=== PATIENT | female | born 1950 | race Caucasian/White ===

== ENCOUNTER 2023-09-18 20:36 | Inpatient (IN) | payer MEDICARE, OTHER ==
[~2023-09-18] VITALS: Ht 170.2 cm; Wt 58.5 kg
[2023-09-18 20:50] VITALS: BP 124/81; TEMP 98.2; O2SAT 95
[2023-09-18] MEDS ORDERED: ACETAMINOPHEN 325 MG TABLET PO PRN (21:00)
[2023-09-18] MEDS ORDERED: MAG HYDROX/AL HYDROX/SIMETH 30 ML UDC PO PRN (21:00)
[2023-09-18] MEDS ORDERED: LORAZEPAM 0.5 MG TABLET PO PRN (21:00)
[2023-09-18] MEDS ORDERED: MAGNESIUM HYDROXIDE 30 ML UDC PO PRN (21:00)
[2023-09-18] MEDS ORDERED: TEMAZEPAM 7.5 MG CAPSULE PO PRN (21:00)
[2023-09-18] MEDS ORDERED: BLOOD SUGAR DIAGNOSTIC 1 EACH STRIP IN ONE (21:00)
[2023-09-19 07:49] LABS: ALBUMIN 3.2 g/dL (3.4-5.0); BILIRUBIN,TOTAL 0.4 mg/dL (0.2-1.0); CALCIUM, SERUM 8.9 mg/dL (8.5-10.1); POTASSIUM 3.2 mmol/L (3.5-5.1); TOTAL PROTEIN, SERUM 6.3 g/dL (6.4-8.2)
[2023-09-19 07:50] LABS: CHOLESTEROL 173 mg/dL (<200); HDL CHOLESTEROL 57 mg/dL (40-60); LDL 102 mg/dL (0-99); TRIGLYCERIDES 78 mg/dL (30-150)
[2023-09-19 08:00] VITALS: BP 156/78; TEMP 98; O2SAT 98
[2023-09-19] MEDS: risperiDONE 0.25 MG TABLET PO SCH ×2 (12:54→16:19)
[2023-09-19] MEDS ORDERED: POTASSIUM CHLORIDE 20 MEQ TAB.PRT.SR PO ONE (14:30)
[2023-09-19 16:00] VITALS: BP 126/77; TEMP 98; O2SAT 100
[2023-09-19] MEDS: DULOXETINE HCL 30 MG CAPSULE.DR PO SCH (16:19)
[2023-09-19] MEDS ORDERED: ENSURE ENLIVE CHOC 237 ML CAN PO SCH (17:00)
[2023-09-19] MEDS: ENSURE ENLIVE 237 ML LIQUID (VANILLA) PO SCH (17:19)
[2023-09-19 20:00] VITALS: BP 125/78; TEMP 98.1; O2SAT 97
[2023-09-20 08:00] VITALS: BP 113/67; TEMP 97.6; O2SAT 98
[2023-09-20] MEDS: ENSURE ENLIVE 237 ML LIQUID (VANILLA) PO SCH ×2 (08:17→17:07)
[2023-09-20] MEDS: risperiDONE 0.25 MG TABLET PO SCH ×2 (08:18→16:17)
[2023-09-20 16:00] VITALS: BP 116/67; TEMP 97.6; O2SAT 98
[2023-09-20] MEDS: DULOXETINE HCL 30 MG CAPSULE.DR PO SCH (16:17)
[2023-09-20 20:00] VITALS: BP 102/65; TEMP 98.1; O2SAT 97
[2023-09-21 07:36] LABS: BASOPHILS % (AUTO) 0.2 % (0.0-2.0); EOSINOPHILS # (AUTO) 0.3 K/uL (0.0-0.7); EOSINOPHILS % (AUTO) 5.2 % (0.0-6.0); HEMATOCRIT 34 % (33-45); LYMPHOCYTES # (AUTO) 2.2 K/uL (0.8-4.8); LYMPHOCYTES % (AUTO) 39.3 % (20.0-44.0); MEAN CORPUSCULAR HEMOGLOBIN 29 PG (26.0-33.0); MEAN CORPUSCULAR HGB CONC 32 g/dl (31.0-36.0); MEAN CORPUSCULAR VOLUME 91 fL (82-100); MONOCYTES # (AUTO) 0.4 K/uL (0.1-1.30); MONOCYTES % (AUTO) 7.9 % (2.0-12.0); NEUTROPHILS # (AUTO) 2.7 K/uL (1.8-8.9); NEUTROPHILS % (AUTO) 47.4 % (43.0-81.0); PLATELET COUNT (AUTO) 211 K/uL (150-450); RED BLOOD CELL COUNT(AUTO) 3.76 MIL/uL (4.0-5.2); RED CELL DISTRIBUTION WIDTH 14.4 % (11.5-15.0); WHITE BLOOD COUNT (AUTO) 5.6 K/uL (4.3-11.0)
[2023-09-21 08:00] VITALS: BP 112/68; TEMP 97.7; O2SAT 99
[2023-09-21] MEDS: risperiDONE 0.25 MG TABLET PO SCH ×2 (08:07→16:07)
[2023-09-21] MEDS: ENSURE ENLIVE 237 ML LIQUID (VANILLA) PO SCH ×2 (08:07→18:01)
[2023-09-21 16:00] VITALS: BP 100/65; TEMP 97.5; O2SAT 97
[2023-09-21] MEDS: DULOXETINE HCL 30 MG CAPSULE.DR PO SCH (16:07)
[2023-09-21 20:00] VITALS: BP 109/53; TEMP 97.7; O2SAT 97
[2023-09-22 08:00] VITALS: BP 102/86; TEMP 97.8; O2SAT 98
[2023-09-22] MEDS: ENSURE ENLIVE 237 ML LIQUID (VANILLA) PO SCH ×2 (08:42→17:03)
[2023-09-22] MEDS: risperiDONE 0.25 MG TABLET PO SCH ×2 (08:42→17:03)
[2023-09-22 16:00] VITALS: BP 110/85; TEMP 97.9; O2SAT 94
[2023-09-22] MEDS: DULOXETINE HCL 30 MG CAPSULE.DR PO SCH (17:03)
[2023-09-22 20:23] VITALS: BP 103/63; TEMP 98.2; O2SAT 98
[2023-09-23 08:00] VITALS: BP 129/67; TEMP 98.6; O2SAT 98
[2023-09-23] MEDS: ENSURE ENLIVE 237 ML LIQUID (VANILLA) PO SCH ×2 (08:00→16:02)
[2023-09-23] MEDS: PANTOPRAZOLE 40 MG TABLET.DR PO SCH (08:00)
[2023-09-23] MEDS: risperiDONE 0.25 MG TABLET PO SCH ×2 (08:29→16:02)
[2023-09-23] MEDS: DOCUSATE SODIUM 100 MG CAPSULE PO SCH (08:30)
[2023-09-23 16:00] VITALS: BP 131/70; TEMP 97.7; O2SAT 99
[2023-09-23] MEDS: DULOXETINE HCL 30 MG CAPSULE.DR PO SCH (16:03)
[2023-09-23 20:00] VITALS: BP 118/65; TEMP 98.6; O2SAT 95
[2023-09-24 08:00] VITALS: BP 101/67; TEMP 97.6; O2SAT 98
[2023-09-24] MEDS: ENSURE ENLIVE 237 ML LIQUID (VANILLA) PO SCH ×2 (08:49→17:04)
[2023-09-24] MEDS: DOCUSATE SODIUM 100 MG CAPSULE PO SCH (08:50)
[2023-09-24] MEDS: risperiDONE 0.25 MG TABLET PO SCH ×3 (08:50→16:33)
[2023-09-24] MEDS: PANTOPRAZOLE 40 MG TABLET.DR PO SCH (08:50)
[2023-09-24] MEDS: DULOXETINE HCL 30 MG CAPSULE.DR PO SCH ×2 (13:41→16:33)
[2023-09-24 16:00] VITALS: BP 105/73; TEMP 97.9; O2SAT 97
[2023-09-24 19:59] VITALS: BP 115/75; TEMP 98.8; O2SAT 96
[2023-09-25] MEDS: PANTOPRAZOLE 40 MG TABLET.DR PO SCH (07:54)
[2023-09-25] MEDS: ENSURE ENLIVE 237 ML LIQUID (VANILLA) PO SCH ×2 (07:55→16:28)
[2023-09-25 08:00] VITALS: BP 116/76; TEMP 98.1; O2SAT 98
[2023-09-25] MEDS: DOCUSATE SODIUM 100 MG CAPSULE PO SCH (08:08)
[2023-09-25] MEDS: risperiDONE 0.25 MG TABLET PO SCH ×3 (08:08→16:28)
[2023-09-25] MEDS: DULOXETINE HCL 30 MG CAPSULE.DR PO SCH ×2 (12:29→16:27)
[2023-09-25 16:37] VITALS: BP 111/80; TEMP 98.1; O2SAT 97
[2023-09-25 19:26] VITALS: BP 99/61; TEMP 98.3; O2SAT 95
[2023-09-26] MEDS: PANTOPRAZOLE 40 MG TABLET.DR PO SCH (07:37)
[2023-09-26] MEDS: ENSURE ENLIVE 237 ML LIQUID (VANILLA) PO SCH ×2 (07:43→16:08)
[2023-09-26 08:00] VITALS: BP 120/83; TEMP 98.2; O2SAT 97
[2023-09-26] MEDS: DOCUSATE SODIUM 100 MG CAPSULE PO SCH (08:29)
[2023-09-26] MEDS: risperiDONE 0.25 MG TABLET PO SCH ×3 (08:29→16:08)
[2023-09-26] MEDS: DULOXETINE HCL 30 MG CAPSULE.DR PO SCH ×2 (12:38→16:08)
[2023-09-26 16:00] VITALS: BP 109/84; TEMP 98.1; O2SAT 98
[2023-09-27 08:00] VITALS: BP 131/87; TEMP 97.9; O2SAT 98
[2023-09-27 08:02] LABS: BASOPHILS % (AUTO) 0.5 % (0.0-2.0); EOSINOPHILS # (AUTO) 0.2 K/uL (0.0-0.7); EOSINOPHILS % (AUTO) 4.8 % (0.0-6.0); HEMATOCRIT 35 % (33-45); HEMOGLOBIN 11.6 g/dL (11.5-14.8); LYMPHOCYTES # (AUTO) 1.7 K/uL (0.8-4.8); LYMPHOCYTES % (AUTO) 33.2 % (20.0-44.0); MEAN CORPUSCULAR HEMOGLOBIN 30 PG (26.0-33.0); MEAN CORPUSCULAR HGB CONC 33 g/dl (31.0-36.0); MEAN CORPUSCULAR VOLUME 91 fL (82-100); MONOCYTES # (AUTO) 0.3 K/uL (0.1-1.30); MONOCYTES % (AUTO) 5.4 % (2.0-12.0); NEUTROPHILS # (AUTO) 2.9 K/uL (1.8-8.9); NEUTROPHILS % (AUTO) 56.1 % (43.0-81.0); PLATELET COUNT (AUTO) 217 K/uL (150-450); RED BLOOD CELL COUNT(AUTO) 3.87 MIL/uL (4.0-5.2); RED CELL DISTRIBUTION WIDTH 14.4 % (11.5-15.0); WHITE BLOOD COUNT (AUTO) 5.2 K/uL (4.3-11.0)
[2023-09-27] MEDS: risperiDONE 0.25 MG TABLET PO SCH ×3 (08:08→16:33)
[2023-09-27] MEDS: ENSURE ENLIVE 237 ML LIQUID (VANILLA) PO SCH ×2 (08:08→17:41)
[2023-09-27] MEDS: PANTOPRAZOLE 40 MG TABLET.DR PO SCH (08:08)
[2023-09-27] MEDS: DOCUSATE SODIUM 100 MG CAPSULE PO SCH (08:08)
[2023-09-27 08:14] LABS: ALBUMIN 3.1 g/dL (3.4-5.0); BILIRUBIN,TOTAL 0.4 mg/dL (0.2-1.0); CALCIUM, SERUM 8.7 mg/dL (8.5-10.1); CREATININE 0.9 mg/dL (0.6-1.3); POTASSIUM 3.7 mmol/L (3.5-5.1); TOTAL PROTEIN, SERUM 6.3 g/dL (6.4-8.2)
[2023-09-27] MEDS: DULOXETINE HCL 30 MG CAPSULE.DR PO SCH ×2 (12:11→12:46)
[2023-09-27 16:00] VITALS: BP 98/61; TEMP 98; O2SAT 96
[2023-09-27 20:42] VITALS: BP 98/59; TEMP 98; O2SAT 95
[2023-09-28 08:00] VITALS: BP 106/72; TEMP 97.9; O2SAT 95
[2023-09-28] MEDS: SERTRALINE HCL 25 MG TABLET PO SCH (08:13)
[2023-09-28] MEDS: ENSURE ENLIVE 237 ML LIQUID (VANILLA) PO SCH ×2 (08:13→17:20)
[2023-09-28] MEDS: risperiDONE 0.25 MG TABLET PO SCH ×3 (08:14→16:11)
[2023-09-28] MEDS: DOCUSATE SODIUM 100 MG CAPSULE PO SCH (08:14)
[2023-09-28] MEDS: PANTOPRAZOLE 40 MG TABLET.DR PO SCH (08:14)
[2023-09-28] MEDS: DULOXETINE HCL 30 MG CAPSULE.DR PO SCH (12:12)
[2023-09-28 16:00] VITALS: BP 103/68; TEMP 98; O2SAT 100
[2023-09-28 20:00] VITALS: BP 111/62; TEMP 98.2; O2SAT 96
[2023-09-29 08:00] VITALS: BP 108/66; TEMP 98; O2SAT 98
[2023-09-29] MEDS: PANTOPRAZOLE 40 MG TABLET.DR PO SCH (08:10)
[2023-09-29] MEDS: ENSURE ENLIVE 237 ML LIQUID (VANILLA) PO SCH ×2 (08:11→16:07)
[2023-09-29] MEDS: DOCUSATE SODIUM 100 MG CAPSULE PO SCH (08:16)
[2023-09-29] MEDS: SERTRALINE HCL 25 MG TABLET PO SCH (08:16)
[2023-09-29] MEDS: risperiDONE 0.25 MG TABLET PO SCH ×3 (08:16→16:07)
[2023-09-29] MEDS: DULOXETINE HCL 30 MG CAPSULE.DR PO SCH (12:27)
[2023-09-29 16:00] VITALS: BP 120/71; TEMP 97.4; O2SAT 96
[2023-09-30 08:00] VITALS: BP 109/74; TEMP 97.7; O2SAT 98
[2023-09-30] MEDS: ENSURE ENLIVE 237 ML LIQUID (VANILLA) PO SCH ×2 (08:09→17:01)
[2023-09-30] MEDS: DOCUSATE SODIUM 100 MG CAPSULE PO SCH ×2 (08:10→17:01)
[2023-09-30] MEDS: SERTRALINE HCL 25 MG TABLET PO SCH ×2 (08:10→17:01)
[2023-09-30] MEDS: PANTOPRAZOLE 40 MG TABLET.DR PO SCH (08:10)
[2023-09-30] MEDS: risperiDONE 0.25 MG TABLET PO SCH ×3 (08:10→17:01)
[2023-09-30] MEDS: DULOXETINE HCL 30 MG CAPSULE.DR PO SCH (12:44)
[2023-09-30] MEDS: POLYETHYLENE GLYCOL 3350 17 GM POWD.PACK PO PRN (14:25)
[2023-09-30 16:00] VITALS: BP 122/79; TEMP 97.3; O2SAT 98
[2023-09-30 21:41] VITALS: BP 115/75; TEMP 98.7; O2SAT 97
[2023-10-01] MEDS: POLYETHYLENE GLYCOL 3350 17 GM POWD.PACK PO PRN (06:49)
[2023-10-01 08:00] VITALS: BP 114/74; TEMP 97.9; O2SAT 98
[2023-10-01] MEDS: DOCUSATE SODIUM 100 MG CAPSULE PO SCH ×2 (08:24→16:29)
[2023-10-01] MEDS: risperiDONE 0.25 MG TABLET PO SCH ×3 (08:24→16:28)
[2023-10-01] MEDS: PANTOPRAZOLE 40 MG TABLET.DR PO SCH (08:24)
[2023-10-01] MEDS: SENNOSIDES 8.6 MG TABLET PO SCH (08:34)
[2023-10-01] MEDS: ENSURE ENLIVE 237 ML LIQUID (VANILLA) PO SCH ×2 (08:35→17:20)
[2023-10-01] MEDS: SERTRALINE HCL 25 MG TABLET PO SCH ×2 (12:08→16:29)
[2023-10-01] MEDS: DULOXETINE HCL 30 MG CAPSULE.DR PO SCH (12:13)
[2023-10-01 16:00] VITALS: BP 111/66; TEMP 98; O2SAT 97
[2023-10-01 20:00] VITALS: BP 91/50; TEMP 98.1; O2SAT 94
[2023-10-01 22:14] LABS: APPEARANCE,URINE CLEAR (CLEAR); BILIRUBIN,URINE NEGATIVE (NEGATIVE); BLOOD, URINE NEGATIVE Ery/uL (NEGATIVE); COLOR,URINE YELLOW (YELLOW); KETONES,URINE NEGATIVE (NEGATIVE); LEUKOCYTE ESTERASE ,URINE 1+ (NEGATIVE); NITRITE, URINE NEGATIVE (NEGATIVE); PROTEIN,URINE NEGATIVE (NEGATIVE); UGLUCOSE NEGATIVE (NEGATIVE); UROBILINOGEN,URINE 0.2 EU/dL (0.2)
[2023-10-01 22:26] LABS: ADD URINE CULTURE YES; BACTERIA,URINE None seen /HPF (None Seen); RBC,URINE 0-2 /HPF (0-2)
[2023-10-02 08:00] VITALS: BP 116/73; TEMP 97.7; O2SAT 98
[2023-10-02] MEDS: risperiDONE 0.25 MG TABLET PO SCH ×3 (08:28→17:41)
[2023-10-02] MEDS: SENNOSIDES 8.6 MG TABLET PO SCH (08:28)
[2023-10-02] MEDS: DOCUSATE SODIUM 100 MG CAPSULE PO SCH ×2 (08:28→17:40)
[2023-10-02] MEDS: ENSURE ENLIVE 237 ML LIQUID (VANILLA) PO SCH ×2 (08:28→17:40)
[2023-10-02] MEDS: PANTOPRAZOLE 40 MG TABLET.DR PO SCH (08:28)
[2023-10-02] MEDS: SERTRALINE HCL 25 MG TABLET PO SCH ×2 (12:26→17:40)
[2023-10-02] MEDS: DULOXETINE HCL 30 MG CAPSULE.DR PO SCH (12:26)
[2023-10-02 16:00] VITALS: BP 120/74; TEMP 97.7; O2SAT 98
[2023-10-02 20:08] VITALS: BP 111/67; TEMP 98.2; O2SAT 96
[2023-10-03 07:38] LABS: BASOPHILS % (AUTO) 0.2 % (0.0-2.0); EOSINOPHILS # (AUTO) 0.3 K/uL (0.0-0.7); EOSINOPHILS % (AUTO) 6.4 % (0.0-6.0); HEMATOCRIT 32 % (33-45); HEMOGLOBIN 10.6 g/dL (11.5-14.8); LYMPHOCYTES # (AUTO) 1.7 K/uL (0.8-4.8); MEAN CORPUSCULAR HEMOGLOBIN 30 PG (26.0-33.0); MEAN CORPUSCULAR HGB CONC 33 g/dl (31.0-36.0); MEAN CORPUSCULAR VOLUME 90 fL (82-100); MONOCYTES # (AUTO) 0.5 K/uL (0.1-1.30); MONOCYTES % (AUTO) 9.1 % (2.0-12.0); NEUTROPHILS # (AUTO) 2.7 K/uL (1.8-8.9); NEUTROPHILS % (AUTO) 51.3 % (43.0-81.0); PLATELET COUNT (AUTO) 210 K/uL (150-450); RED BLOOD CELL COUNT(AUTO) 3.58 MIL/uL (4.0-5.2); RED CELL DISTRIBUTION WIDTH 14.7 % (11.5-15.0); WHITE BLOOD COUNT (AUTO) 5.3 K/uL (4.3-11.0)
[2023-10-03 07:51] LABS: ALBUMIN 2.9 g/dL (3.4-5.0); BILIRUBIN,TOTAL 0.4 mg/dL (0.2-1.0); CALCIUM, SERUM 8.8 mg/dL (8.5-10.1); CREATININE 0.9 mg/dL (0.6-1.3); POTASSIUM 3.9 mmol/L (3.5-5.1); TOTAL PROTEIN, SERUM 5.9 g/dL (6.4-8.2)
[2023-10-03 08:00] VITALS: BP 118/66; TEMP 98; O2SAT 95
[2023-10-03] MEDS: ENSURE ENLIVE 237 ML LIQUID (VANILLA) PO SCH (08:34)
[2023-10-03] MEDS: DOCUSATE SODIUM 100 MG CAPSULE PO SCH (08:34)
[2023-10-03] MEDS: SENNOSIDES 8.6 MG TABLET PO SCH (08:34)
[2023-10-03] MEDS: PANTOPRAZOLE 40 MG TABLET.DR PO SCH (08:34)
[2023-10-03] MEDS: risperiDONE 0.25 MG TABLET PO SCH ×2 (10:08→12:27)
[2023-10-03] MEDS: SERTRALINE HCL 25 MG TABLET PO SCH (12:28)
== END 2023-10-03 14:00 | DRG 885 ==
LOC: GPS 20:36
PROVIDERS: ADMIT Psychiatry & Neurology Psychosomatic Medicine; ATTEND Nurse Practitioner Acute Care
DX: F32.3 Major depressive disorder, single episode, severe with psychotic features (principal); G93.41 Metabolic encephalopathy; E44.0 Moderate protein-calorie malnutrition; N39.0 Urinary tract infection, site not specified; R62.7 Adult failure to thrive; F41.9 Anxiety disorder, unspecified; Z90.710 Acquired absence of both cervix and uterus; Z20.822 Contact with and (suspected) exposure to COVID-19; Z73.6 Limitation of activities due to disability; Z68.20 Body mass index [BMI] 20.0-20.9, adult
CPT/HCPCS: 36415; 80053-TC; 80061-TC; 81001; 82962-TC; 85025-TC; 87081-TC; 87086-TC; 97110-TC; 97116-TC

== ENCOUNTER 2024-02-27 13:51 | Emergency (ER) | payer MEDICARE, OTHER ==
[~2024-02-27] VITALS: Ht 170.2 cm; Wt 73.0 kg
[2024-02-27] MEDS ORDERED: KETOROLAC TROMETHAMINE INJ 30 MG/ML VIAL ONE (15:55)
[2024-02-27] MEDS ORDERED: BACLOFEN (10 MG) 10 MG TABLET ONE (15:56)
[2024-02-27] MEDS: BACLOFEN (10 MG) 10 MG TABLET PO ONE (16:03)
[2024-02-27] MEDS: KETOROLAC TROMETHAMINE INJ 30 MG/ML VIAL IM ONE (16:03)
[2024-02-27 19:31] VITALS: BP 154/89; TEMP 98.3; O2SAT 99
[2024-02-28] MEDS ORDERED: BENZ1LOZ58 PO (16:04)
[2024-02-28] MEDS ORDERED: ACET-868 PO (16:04)
[2024-02-28] MEDS ORDERED: FLUT16SP16 BNOSTRILS (16:04)
[2024-02-28] MEDS ORDERED: POLY15DR31 EACHEYE (16:04)
[2024-02-28] MEDS ORDERED: SENN8.6T19 PO (16:04)
[2024-02-28] MEDS ORDERED: ASCO-352 PO (16:04)
[2024-02-28] MEDS ORDERED: RISP0.5T5 PO (16:04)
[2024-02-28] MEDS ORDERED: PANT40TA2 PO (16:04)
[2024-02-28] MEDS ORDERED: SERT25TA PO (16:04)
[2024-02-28] MEDS ORDERED: POLY17PO4 PO (16:04)
[2024-02-28] MEDS ORDERED: MULT-1275 PO (16:04)
[2024-02-28] MEDS ORDERED: MAGN400O6 PO (16:04)
[2024-02-28] MEDS ORDERED: DOCU100C36 PO (16:04)
[2024-02-28] MEDS ORDERED: GUAI100S9 PO (16:04)
[2024-02-28] MEDS ORDERED: IBUP-1955 PO (16:04)
== END 2024-02-27 19:32 ==
LOC: ER 13:55
DX: M54.2 Cervicalgia (principal); M43.6 Torticollis
CPT/HCPCS: 70490-TC; J1885

== ENCOUNTER 2024-02-28 15:28 | Inpatient (IN) | payer MEDICARE ==
[~2024-02-28] VITALS: Ht 170.2 cm; Wt 69.4 kg
[2024-02-28] MEDS ORDERED: BENZ1LOZ58 PO (16:04)
[2024-02-28] MEDS ORDERED: POLY17PO4 PO (16:04)
[2024-02-28] MEDS ORDERED: SENN8.6T19 PO (16:04)
[2024-02-28] MEDS ORDERED: IBUP-1955 PO (16:04)
[2024-02-28] MEDS ORDERED: DOCU100C36 PO (16:04)
[2024-02-28] MEDS ORDERED: RISP0.5T5 PO (16:04)
[2024-02-28] MEDS ORDERED: ACET-868 PO (16:04)
[2024-02-28] MEDS ORDERED: POLY15DR31 EACHEYE (16:04)
[2024-02-28] MEDS ORDERED: ASCO-352 PO (16:04)
[2024-02-28] MEDS ORDERED: GUAI100S9 PO (16:04)
[2024-02-28] MEDS ORDERED: PANT40TA2 PO (16:04)
[2024-02-28] MEDS ORDERED: MAGN400O6 PO (16:04)
[2024-02-28] MEDS ORDERED: MULT-1275 PO (16:04)
[2024-02-28] MEDS ORDERED: SERT25TA PO (16:04)
[2024-02-28] MEDS ORDERED: FLUT16SP16 BNOSTRILS (16:04)
[2024-02-28 16:20] LABS: BASOPHILS # (AUTO) 0.1 K/uL (0.0-0.2); BASOPHILS % (AUTO) 0.6 % (0.0-2.0); EOSINOPHILS # (AUTO) 0.9 K/uL (0.0-0.7); EOSINOPHILS % (AUTO) 9.3 % (0.0-6.0); HEMATOCRIT 40 % (33-45); HEMOGLOBIN 13.1 g/dL (11.5-14.8); LYMPHOCYTES # (AUTO) 2.1 K/uL (0.8-4.8); MEAN CORPUSCULAR HEMOGLOBIN 29 PG (26.0-33.0); MEAN CORPUSCULAR HGB CONC 33 g/dl (31.0-36.0); MEAN CORPUSCULAR VOLUME 90 fL (82-100); MONOCYTES # (AUTO) 0.6 K/uL (0.1-1.30); MONOCYTES % (AUTO) 6.4 % (2.0-12.0); NEUTROPHILS # (AUTO) 5.6 K/uL (1.8-8.9); NEUTROPHILS % (AUTO) 60.7 % (43.0-81.0); PLATELET COUNT (AUTO) 293 K/uL (150-450); RED BLOOD CELL COUNT(AUTO) 4.46 MIL/uL (4.0-5.2); RED CELL DISTRIBUTION WIDTH 13.5 % (11.5-15.0); WHITE BLOOD COUNT (AUTO) 9.2 K/uL (4.3-11.0)
[2024-02-28 16:30] VITALS: BP 151/80; TEMP 98.4; O2SAT 96
[2024-02-28 16:39] LABS: CALCIUM, SERUM 8.8 mg/dL (8.5-10.1); CARBON DIOXIDE 29 mmol/L (21-32); CHLORIDE 104 mmol/L (98-107); GLUCOSE 106 mg/dL (74-106); SODIUM SERUM 137 mmol/L (136-145); UREA NITROGEN, BLOOD 21 mg/dL (7-18)
[2024-02-28 16:43] LABS: NT-PRO BNP 168 pg/mL (0-125)
[2024-02-28] MEDS ORDERED: ONDANSETRON HCL/PF 4 MG/2 ML VIAL IVP PRN (17:30)
[2024-02-28] MEDS ORDERED: Z GUARD REMEDY 4 OZ OINT TP PRN (17:30)
[2024-02-28] MEDS ORDERED: MAG HYDROX/AL HYDROX/SIMETH 30 ML UDC PO PRN (17:30)
[2024-02-28] MEDS ORDERED: ACETAMINOPHEN 325 MG TABLET PO PRN (17:30)
[2024-02-28] MEDS ORDERED: MAGNESIUM HYDROXIDE 30 ML UDC PO PRN (17:30)
[2024-02-28] MEDS ORDERED: HYDROCODONE/APAP 5/325MG TABLET PO PRN (17:30)
[2024-02-28 18:00] VITALS: BP 151/80; TEMP 98.4; O2SAT 96
[2024-02-28] MEDS ORDERED: CEFTRIAXONE 1 G in IV D5W 50 ML IV SCH (18:00)
[2024-02-28] MEDS: IV NS 0.9% 1,000 ML IV PRN (18:19)
[2024-02-28 19:11] LABS: THYROID STIMULATING HORMONE 1.653 uIU/mL (0.358-3.74)
[2024-02-28 20:00] VITALS: BP 138/78; TEMP 98.2; O2SAT 96
[2024-02-29 06:52] LABS: BASOPHILS % (AUTO) 0.3 % (0.0-2.0); EOSINOPHILS % (AUTO) 13.8 % (0.0-6.0); HEMATOCRIT 37 % (33-45); HEMOGLOBIN 12.2 g/dL (11.5-14.8); LYMPHOCYTES # (AUTO) 2.5 K/uL (0.8-4.8); LYMPHOCYTES % (AUTO) 32.4 % (20.0-44.0); MEAN CORPUSCULAR HEMOGLOBIN 30 PG (26.0-33.0); MEAN CORPUSCULAR HGB CONC 33 g/dl (31.0-36.0); MEAN CORPUSCULAR VOLUME 90 fL (82-100); MONOCYTES # (AUTO) 0.6 K/uL (0.1-1.30); MONOCYTES % (AUTO) 7.9 % (2.0-12.0); NEUTROPHILS # (AUTO) 3.5 K/uL (1.8-8.9); NEUTROPHILS % (AUTO) 45.6 % (43.0-81.0); PLATELET COUNT (AUTO) 283 K/uL (150-450); RED BLOOD CELL COUNT(AUTO) 4.06 MIL/uL (4.0-5.2); RED CELL DISTRIBUTION WIDTH 13.6 % (11.5-15.0); WHITE BLOOD COUNT (AUTO) 7.6 K/uL (4.3-11.0)
[2024-02-29 07:02] LABS: CALCIUM, SERUM 8.8 mg/dL (8.5-10.1); CREATININE 0.8 mg/dL (0.6-1.3); PHOSPHORUS 3.6 mg/dL (2.5-4.9)
[2024-02-29] MEDS: PANTOPRAZOLE 40 MG TABLET.DR PO SCH (07:52)
[2024-02-29 08:00] VITALS: BP 132/88; TEMP 98.4; O2SAT 95
[2024-02-29 10:17] LABS: APPEARANCE,URINE CLEAR (CLEAR); BILIRUBIN,URINE NEGATIVE (NEGATIVE); BLOOD, URINE NEGATIVE Ery/uL (NEGATIVE); COLOR,URINE YELLOW (YELLOW); KETONES,URINE NEGATIVE (NEGATIVE); LEUKOCYTE ESTERASE ,URINE NEGATIVE (NEGATIVE); NITRITE, URINE NEGATIVE (NEGATIVE); PROTEIN,URINE NEGATIVE (NEGATIVE); UGLUCOSE NEGATIVE (NEGATIVE); UROBILINOGEN,URINE 0.2 EU/dL (0.2)
[2024-02-29] MEDS ORDERED: MAGNESIUM HYDROXIDE 30 ML UDC PO PRN (11:00)
[2024-02-29] MEDS ORDERED: ACETAMINOPHEN 325 MG TABLET PO PRN (11:00)
[2024-02-29] MEDS ORDERED: FLUTICASONE PROPIONATE 16 GM BOTTLE NS PRN (11:00)
[2024-02-29] MEDS ORDERED: POLYVINYL ALCOHOL 15 ML BOTTLE EACHEYE PRN (11:00)
[2024-02-29] MEDS ORDERED: POLYETHYLENE GLYCOL 3350 17 GM POWD.PACK PO PRN (11:00)
[2024-02-29] MEDS ORDERED: GUAIFENESIN 300 MG/15 ML UDC PO PRN (11:00)
[2024-02-29] MEDS ORDERED: MENTHOL/CETYLPYRD (CEPACOL) 1 LOZ LOZENGE PO PRN (11:30)
[2024-02-29] MEDS: MULTIVITAMINS,THERAGRAN 1 UDTAB TABLET PO SCH (12:02)
[2024-02-29] MEDS: ASCORBIC ACID 500 MG TABLET PO SCH (12:02)
[2024-02-29] MEDS: risperiDONE 0.25 MG TABLET PO SCH (12:02)
[2024-02-29 16:00] VITALS: BP 123/72; TEMP 97.9; O2SAT 95
[2024-02-29] MEDS: DOCUSATE SODIUM 100 MG CAPSULE PO SCH (17:05)
[2024-02-29] MEDS: SERTRALINE HCL 25 MG TABLET PO SCH (17:05)
[2024-02-29 20:00] VITALS: BP 135/82; TEMP 98.6; O2SAT 94
[2024-02-29] MEDS: SENNOSIDES 8.6 MG TABLET PO SCH (22:35)
[2024-03-01] MEDS ORDERED: PANTOPRAZOLE 40 MG TABLET.DR PO SCH (07:30)
[2024-03-01 08:00] VITALS: BP 136/67; TEMP 98.4; O2SAT 95
[2024-03-01 16:00] VITALS: BP 130/80; TEMP 98.6; O2SAT 95
[2024-03-01 20:00] VITALS: BP 127/71; TEMP 98.5; TEMP 98.8; O2SAT 94
== END 2024-03-02 12:55 | DRG 640 ==
LOC: ER 15:31 → MED 17:51
PROVIDERS: ADMIT Nurse Practitioner Acute Care; ATTEND Nurse Practitioner Acute Care
DX: E86.0 Dehydration (principal); G93.41 Metabolic encephalopathy; E44.0 Moderate protein-calorie malnutrition; M54.2 Cervicalgia; Z98.1 Arthrodesis status; E88.09 Other disorders of plasma-protein metabolism, not elsewhere classified; F32.A Depression, unspecified; Z87.440 Personal history of urinary (tract) infections; E04.1 Nontoxic single thyroid nodule; R53.1 Weakness; Z68.24 Body mass index [BMI] 24.0-24.9, adult
CPT/HCPCS: 36415; 71045-TC; 76536-TC; 80048-TC; 83735-TC; 83880; 84100-TC; 84439-TC; 84443-TC; 84484-TC; 85025-TC; 87081-TC; 97110-TC; 97112-TC; 97116-TC; 97530-TC; 97535-TC; A4223; G0378; J7030